=== PATIENT | male | born 1955 | race Caucasian/White ===

== ENCOUNTER 2021-05-14 12:17 | Outpatient (REF) | payer OTHER, SELFPAY ==
[2021-05-14 22:27] LABS: PSA, Screening 5.2 ng/mL (0.0-4.5)
== END 2021-05-14 12:18 | disposition home or self-care (01) ==
LOC: LBN 12:17
PROVIDERS: PCP Physician Assistant; Visit Provider Nurse Practitioner Gerontology
DX: Z12.5 Encounter for screening for malignant neoplasm of prostate (principal); N40.1 Benign prostatic hyperplasia with lower urinary tract symptoms; R33.9 Retention of urine, unspecified
CPT/HCPCS: 84153

== ENCOUNTER 2021-09-05 17:04 | Outpatient (REF) | payer OTHER, SELFPAY ==
[2021-09-05 17:34] LABS: PSA, Diagnostic 4.9 ng/mL (0.0-4.5)
== END 2021-09-05 17:05 | disposition home or self-care (01) ==
LOC: LBN 17:04
PROVIDERS: PCP Physician Assistant; Visit Provider Nurse Practitioner Gerontology
DX: R97.20 Elevated prostate specific antigen [PSA] (principal)
CPT/HCPCS: 84153

== ENCOUNTER 2022-03-06 17:23 | Outpatient (REF) | payer OTHER, SELFPAY ==
[2022-03-06 22:41] LABS: PSA, Screening 3.9 ng/mL (<=4.5)
== END 2022-03-06 17:24 | disposition home or self-care (01) ==
LOC: LBN 17:23
PROVIDERS: PCP Physician Assistant; Visit Provider Nurse Practitioner Gerontology
DX: N40.0 Benign prostatic hyperplasia without lower urinary tract symptoms (principal); R97.20 Elevated prostate specific antigen [PSA]; Z12.5 Encounter for screening for malignant neoplasm of prostate
CPT/HCPCS: 84153

== ENCOUNTER → 2023-03-05 09:33 | Outpatient (BNVA) | payer MEDICARE, SELFPAY | PROVIDERS: PCP Physician Assistant; Visit Provider Nurse Practitioner Gerontology | DX: N40.1 Benign prostatic hyperplasia with lower urinary tract symptoms (principal); R33.9 Retention of urine, unspecified; R97.20 Elevated prostate specific antigen [PSA] | CPT/HCPCS: 51798; 99213 ==

== ENCOUNTER → 2023-09-03 09:20 | Outpatient (BNVA) | payer MEDICARE, SELFPAY | PROVIDERS: PCP Registered Nurse; Referring Provider Physician Assistant; Visit Provider Nurse Practitioner Gerontology ==

== ENCOUNTER 2023-09-03 10:13 | Outpatient (CLI) | payer MEDICARE, SELFPAY | END 2023-09-03 10:14 | disposition home or self-care (01) | LOC: LBO 10:14 | PROVIDERS: PCP Registered Nurse; Visit Provider Nurse Practitioner Gerontology | DX: N40.0 Benign prostatic hyperplasia without lower urinary tract symptoms (principal) | CPT/HCPCS: 36415; 51798; 99213; 84153 ==

== ENCOUNTER → 2024-03-03 09:15 | Outpatient (BNVA) | payer MEDICARE, SELFPAY | PROVIDERS: PCP Registered Nurse; Referring Provider Registered Nurse; Visit Provider Nurse Practitioner Gerontology | DX: N40.1 Benign prostatic hyperplasia with lower urinary tract symptoms (principal); R33.8 Other retention of urine; R35.0 Frequency of micturition; R97.20 Elevated prostate specific antigen [PSA] | CPT/HCPCS: 51798; 99213 ==

== ENCOUNTER → 2024-10-20 07:55 | Outpatient (BNVA) | payer MEDICARE, SELFPAY | PROVIDERS: PCP Registered Nurse; Referring Provider Registered Nurse; Visit Provider Nurse Practitioner Gerontology | DX: N40.0 Benign prostatic hyperplasia without lower urinary tract symptoms (principal); R33.9 Retention of urine, unspecified; R97.20 Elevated prostate specific antigen [PSA] | CPT/HCPCS: 51798; 99213; 99214 ==